=== PATIENT | male | born 1955 | race African-American/Black ===

== ENCOUNTER 2018-12-17 05:21 | Inpatient (IN) | payer OTHER ==
[2018-12-17] MEDS ORDERED: ALBUTEROL/IPRATROPIUM (NEB) 3 ML AMP HHN (06:30)
[2018-12-17] MEDS ORDERED: ONDANSETRON 4 MG INJ IV (06:30)
[2018-12-17] MEDS ORDERED: NITROGLYCERIN (SL) 0.4 MG TAB SL (06:30)
[2018-12-17] MEDS ORDERED: ACETAMINOPHEN 325 MG TAB PO (06:30)
[2018-12-17] MEDS ORDERED: NACL 0.9% 3 ML SYG IV (06:30)
[2018-12-17 06:52] LABS: ADD MAN DIFF? NO
[2018-12-17 06:55] LABS: WHITE BLOOD COUNT 5.9 10^3/ul (4.8-10.8)
[2018-12-17 06:55] LABS: BASOPHILS % 0.7 % (0.0-2.0); EOSINOPHILS # 0.1 10^3/ul (0.0-0.5); EOSINOPHILS % 1.9 % (0.0-7.0); HEMATOCRIT 42.7 % (42.0-52.0); HEMOGLOBIN 14.1 g/dl (14.0-18.0); LYMPHOCYTES # 1.9 10^3/ul (0.8-2.9); LYMPHOCYTES % 32.5 % (15.0-51.0); MEAN CORPUSCULAR HEMOGLOBIN 26.7 pg (29.0-33.0); MEAN CORPUSCULAR VOLUME 80.7 fl (82.0-101.0); MEAN PLATELET VOLUME 9.8 fl (7.4-10.4); MONOCYTE # 0.6 10^3/ul (0.3-0.9); MONOCYTES % 9.6 % (0.0-11.0); NEUTROPHIL # 3.3 10^3/ul (1.6-7.5); PLATELET COUNT 172 10^3/UL (140-415); RED BLOOD COUNT 5.29 10^6/ul (4.70-6.10); RED CELL DISTRIBUTION WIDTH 13.2 % (11.5-14.5)
[2018-12-17 07:11] LABS: CREATINE KINASE 68 IU/L (23-200)
[2018-12-17 07:14] LABS: ALANINE AMINOTRANSFERASE 29 IU/L (13-69); ALBUMIN 3.2 g/dl (3.3-4.9); ALBUMIN/GLOBULIN RATIO 1.28; ALKALINE PHOSPHATASE 62 IU/L (42-121); ANION GAP 9 (5-13); ASPARTATE AMINO TRANSFERASE 21 IU/L (15-46); BILIRUBIN,INDIRECT 0.4 mg/dl (0-1.1); BILIRUBIN,TOTAL 0.4 mg/dl (0.2-1.3); BLOOD UREA NITROGEN 11 mg/dl (7-20); CALCIUM 8.9 mg/dl (8.4-10.2); CARBON DIOXIDE 25 mmol/L (21-31); CHLORIDE 105 mmol/L (97-110); CHOL/HDL RATIO 2.6 RATIO; CHOLESTEROL 74 mg/dl (100-200); CREATININE 0.88 mg/dl (0.61-1.24); Estimated GFR > 60 mL/min (>60); GLUCOSE 82 mg/dl (70-220); HDL CHOLESTEROL 28 mg/dl (30-78); LDL CHOLESTEROL,CALCULATED 37 mg/dl; MAGNESIUM 1.9 mg/dl (1.7-2.5); SODIUM 139 mmol/L (135-144); TOTAL PROTEIN 5.7 g/dl (6.1-8.1); TRIGLYCERIDES 47 mg/dl (0-149)
[2018-12-17 07:25] LABS: CK INDEX 0.8; CK-MB 0.55 ng/ml (0.0-2.4); TROPONIN-I < 0.012 ng/ml (0.000-0.120)
[2018-12-17] MEDS ORDERED: ALPRAZOLAM 1 MG TAB PO (08:00)
[2018-12-17 08:02] LABS: HEMOGLOBIN A1C 5.7 % (0-5.9)
[2018-12-17] MEDS: ALPRAZOLAM 1 MG TAB PO (08:16)
[2018-12-17] MEDS: RANITIDINE 150 MG TAB PO ×2 (08:47→20:13)
[2018-12-17] MEDS: ATORVASTATIN 80 MG TAB PO (08:47)
[2018-12-17] MEDS: ASPIRIN 81 MG TAB PO (08:47)
[2018-12-17] MEDS: TOLTERODINE (SR) 4 MG CAP PO (08:47)
[2018-12-17] MEDS: METOPROLOL (XL) 25 MG TAB PO (08:48)
[2018-12-17] MEDS: SERTRALINE 50 MG TAB PO (08:48)
[2018-12-17] MEDS: ISOSORBIDE MONONITRATE(SR)60 MG TAB PO (08:48)
[2018-12-17] MEDS: ENALAPRIL 10 MG TAB PO ×2 (08:49→20:13)
[2018-12-17] MEDS: FLUTICASONE 0.05% 16 GM NAS SPRAY NASAL (08:49)
[2018-12-17] MEDS ORDERED: CLOPIDOGREL 75 MG TAB PO (09:00)
[2018-12-17 12:26] LABS: CREATINE KINASE 61 IU/L (23-200)
[2018-12-17 12:37] LABS: CK INDEX 0.6; CK-MB 0.39 ng/ml (0.0-2.4); TROPONIN-I < 0.012 ng/ml (0.000-0.120)
[2018-12-17] MEDS: traMADol 50 MG TAB PO (20:13)
[2018-12-17] MEDS: ZOLPIDEM 5 MG TAB PO (23:02)
[2018-12-17] MEDS: ALPRAZOLAM 0.25 MG TAB PO (23:11)
[2018-12-18 06:29] LABS: ADD MAN DIFF? NO
[2018-12-18 06:36] LABS: WHITE BLOOD COUNT 7.4 10^3/ul (4.8-10.8)
[2018-12-18 06:36] LABS: BASOPHILS % 0.4 % (0.0-2.0); EOSINOPHILS # 0.1 10^3/ul (0.0-0.5); EOSINOPHILS % 1.4 % (0.0-7.0); HEMATOCRIT 43.1 % (42.0-52.0); HEMOGLOBIN 13.7 g/dl (14.0-18.0); LYMPHOCYTES # 1.7 10^3/ul (0.8-2.9); LYMPHOCYTES % 23.1 % (15.0-51.0); MEAN CORPUSCULAR HEMOGLOBIN 26.1 pg (29.0-33.0); MEAN CORPUSCULAR HGB CONC 31.8 g/dl (32.0-37.0); MEAN CORPUSCULAR VOLUME 82.3 fl (82.0-101.0); MEAN PLATELET VOLUME 10.3 fl (7.4-10.4); MONOCYTE # 0.7 10^3/ul (0.3-0.9); MONOCYTES % 9.6 % (0.0-11.0); NEUTROPHIL # 4.8 10^3/ul (1.6-7.5); NEUTROPHILS % 65.1 % (39.0-77.0); PLATELET COUNT 187 10^3/UL (140-415); RED BLOOD COUNT 5.24 10^6/ul (4.70-6.10); RED CELL DISTRIBUTION WIDTH 13.3 % (11.5-14.5)
[2018-12-18 07:13] LABS: ANION GAP 7 (5-13); BLOOD UREA NITROGEN 15 mg/dl (7-20); CALCIUM 8.7 mg/dl (8.4-10.2); CARBON DIOXIDE 25 mmol/L (21-31); CHLORIDE 105 mmol/L (97-110); Estimated GFR > 60 mL/min (>60); GLUCOSE 87 mg/dl (70-220); PHOSPHORUS 5.2 mg/dl (2.5-4.9); POTASSIUM 4.2 mmol/L (3.5-5.1); SODIUM 137 mmol/L (135-144)
[2018-12-18] MEDS: SERTRALINE 50 MG TAB PO (09:10)
[2018-12-18] MEDS: ISOSORBIDE MONONITRATE(SR)60 MG TAB PO (09:10)
[2018-12-18] MEDS: RANITIDINE 150 MG TAB PO ×2 (09:11→20:03)
[2018-12-18] MEDS: TOLTERODINE (SR) 4 MG CAP PO (09:11)
[2018-12-18] MEDS: ENALAPRIL 10 MG TAB PO ×2 (09:11→20:03)
[2018-12-18] MEDS: ATORVASTATIN 80 MG TAB PO (09:11)
[2018-12-18] MEDS: METOPROLOL (XL) 25 MG TAB PO (09:11)
[2018-12-18] MEDS: FLUTICASONE 0.05% 16 GM NAS SPRAY NASAL (09:12)
[2018-12-18] MEDS: ASPIRIN 81 MG TAB PO (09:12)
[2018-12-18] MEDS: traMADol 50 MG TAB PO (18:50)
[2018-12-18] MEDS: ZOLPIDEM 5 MG TAB PO (21:45)
[2018-12-18] MEDS: ALPRAZOLAM 0.25 MG TAB PO (21:45)
[2018-12-19 05:47] LABS: ADD MAN DIFF? NO
[2018-12-19 05:53] LABS: WHITE BLOOD COUNT 6.8 10^3/ul (4.8-10.8)
[2018-12-19 05:53] LABS: BASOPHILS % 0.4 % (0.0-2.0); EOSINOPHILS # 0.1 10^3/ul (0.0-0.5); EOSINOPHILS % 1.9 % (0.0-7.0); HEMATOCRIT 43.3 % (42.0-52.0); HEMOGLOBIN 13.9 g/dl (14.0-18.0); LYMPHOCYTES # 1.9 10^3/ul (0.8-2.9); LYMPHOCYTES % 27.6 % (15.0-51.0); MEAN CORPUSCULAR HEMOGLOBIN 26.3 pg (29.0-33.0); MEAN CORPUSCULAR HGB CONC 32.1 g/dl (32.0-37.0); MEAN CORPUSCULAR VOLUME 81.9 fl (82.0-101.0); MEAN PLATELET VOLUME 9.9 fl (7.4-10.4); MONOCYTE # 0.8 10^3/ul (0.3-0.9); MONOCYTES % 11.1 % (0.0-11.0); NEUTROPHILS % 58.6 % (39.0-77.0); PLATELET COUNT 187 10^3/UL (140-415); RED BLOOD COUNT 5.29 10^6/ul (4.70-6.10); RED CELL DISTRIBUTION WIDTH 13.2 % (11.5-14.5)
[2018-12-19 06:12] LABS: ANION GAP 9 (5-13); BLOOD UREA NITROGEN 14 mg/dl (7-20); CALCIUM 8.9 mg/dl (8.4-10.2); CARBON DIOXIDE 25 mmol/L (21-31); CHLORIDE 103 mmol/L (97-110); CREATININE 0.93 mg/dl (0.61-1.24); Estimated GFR > 60 mL/min (>60); GLUCOSE 83 mg/dl (70-220); MAGNESIUM 1.9 mg/dl (1.7-2.5); POTASSIUM 4.2 mmol/L (3.5-5.1); SODIUM 137 mmol/L (135-144)
[2018-12-19 06:47] LABS: FREE T4 (FREE THYROXINE) 0.83 ng/dl (0.78-2.44)
[2018-12-19] MEDS: RANITIDINE 150 MG TAB PO ×2 (09:27→20:21)
[2018-12-19] MEDS: ATORVASTATIN 80 MG TAB PO (09:27)
[2018-12-19] MEDS: FLUTICASONE 0.05% 16 GM NAS SPRAY NASAL (09:27)
[2018-12-19] MEDS: ASPIRIN 81 MG TAB PO (09:28)
[2018-12-19] MEDS: TOLTERODINE (SR) 4 MG CAP PO (09:28)
[2018-12-19] MEDS: ISOSORBIDE MONONITRATE(SR)60 MG TAB PO (09:28)
[2018-12-19] MEDS: SERTRALINE 50 MG TAB PO (09:29)
[2018-12-19] MEDS: METOPROLOL (XL) 25 MG TAB PO (09:29)
[2018-12-19] MEDS: ENALAPRIL 10 MG TAB PO ×2 (09:29→20:21)
[2018-12-19] MEDS: traMADol 50 MG TAB PO ×2 (10:55→17:29)
[2018-12-19] MEDS: ZOLPIDEM 5 MG TAB PO (22:03)
[2018-12-20 06:14] LABS: ADD MAN DIFF? NO
[2018-12-20 06:23] LABS: BASOPHILS % 0.5 % (0.0-2.0); EOSINOPHILS # 0.2 10^3/ul (0.0-0.5); EOSINOPHILS % 2.5 % (0.0-7.0); HEMATOCRIT 45.4 % (42.0-52.0); HEMOGLOBIN 14.5 g/dl (14.0-18.0); LYMPHOCYTES # 1.8 10^3/ul (0.8-2.9); MEAN CORPUSCULAR HEMOGLOBIN 26.2 pg (29.0-33.0); MEAN CORPUSCULAR HGB CONC 31.9 g/dl (32.0-37.0); MEAN CORPUSCULAR VOLUME 82.1 fl (82.0-101.0); MONOCYTE # 0.6 10^3/ul (0.3-0.9); MONOCYTES % 10.6 % (0.0-11.0); NEUTROPHIL # 3.4 10^3/ul (1.6-7.5); NEUTROPHILS % 55.9 % (39.0-77.0); PLATELET COUNT 187 10^3/UL (140-415); RED BLOOD COUNT 5.53 10^6/ul (4.70-6.10); RED CELL DISTRIBUTION WIDTH 13.1 % (11.5-14.5)
[2018-12-20 06:45] LABS: ANION GAP 7 (5-13); BLOOD UREA NITROGEN 12 mg/dl (7-20); CALCIUM 9.4 mg/dl (8.4-10.2); CARBON DIOXIDE 26 mmol/L (21-31); CHLORIDE 104 mmol/L (97-110); CREATININE 0.87 mg/dl (0.61-1.24); Estimated GFR > 60 mL/min (>60); GLUCOSE 87 mg/dl (70-220); SODIUM 137 mmol/L (135-144)
[2018-12-20 07:30] LABS: POTASSIUM 4.8 mmol/L (3.5-5.1)
[2018-12-20] MEDS: ATORVASTATIN 80 MG TAB PO (09:10)
[2018-12-20] MEDS: RANITIDINE 150 MG TAB PO ×2 (09:10→21:27)
[2018-12-20] MEDS: ASPIRIN 81 MG TAB PO (09:10)
[2018-12-20] MEDS: ISOSORBIDE MONONITRATE(SR)60 MG TAB PO (09:10)
[2018-12-20] MEDS: TOLTERODINE (SR) 4 MG CAP PO (09:10)
[2018-12-20] MEDS: ENALAPRIL 10 MG TAB PO ×2 (09:11→21:00)
[2018-12-20] MEDS: SERTRALINE 50 MG TAB PO (09:12)
[2018-12-20] MEDS: METOPROLOL (XL) 25 MG TAB PO (09:12)
[2018-12-20] MEDS: FLUTICASONE 0.05% 16 GM NAS SPRAY NASAL (09:13)
[2018-12-20] MEDS: traMADol 50 MG TAB PO ×3 (12:34→23:32)
[2018-12-20] MEDS: CLOPIDOGREL 75 MG TAB PO (13:35)
[2018-12-20] MEDS: ZOLPIDEM 5 MG TAB PO (23:31)
[2018-12-21 05:19] LABS: ADD MAN DIFF? NO
[2018-12-21 05:27] LABS: BASOPHILS % 0.5 % (0.0-2.0); EOSINOPHILS # 0.2 10^3/ul (0.0-0.5); EOSINOPHILS % 3.4 % (0.0-7.0); HEMATOCRIT 45.1 % (42.0-52.0); HEMOGLOBIN 14.4 g/dl (14.0-18.0); LYMPHOCYTES # 1.8 10^3/ul (0.8-2.9); LYMPHOCYTES % 31.7 % (15.0-51.0); MEAN CORPUSCULAR HEMOGLOBIN 26.2 pg (29.0-33.0); MEAN CORPUSCULAR HGB CONC 31.9 g/dl (32.0-37.0); MEAN CORPUSCULAR VOLUME 82.1 fl (82.0-101.0); MONOCYTE # 0.7 10^3/ul (0.3-0.9); MONOCYTES % 11.6 % (0.0-11.0); NEUTROPHIL # 2.9 10^3/ul (1.6-7.5); NEUTROPHILS % 52.3 % (39.0-77.0); PLATELET COUNT 184 10^3/UL (140-415); RED BLOOD COUNT 5.49 10^6/ul (4.70-6.10)
[2018-12-21 05:27] LABS: WHITE BLOOD COUNT 5.6 10^3/ul (4.8-10.8)
[2018-12-21 05:40] LABS: INR 1.02; PROTIME 13.5 Sec (11.9-14.9); PT RATIO 1.1
[2018-12-21 06:09] LABS: CREATINE KINASE 54 IU/L (23-200)
[2018-12-21 06:10] LABS: CHOLESTEROL 73 mg/dl (100-200)
[2018-12-21 06:10] LABS: CHOL/HDL RATIO 2.6 RATIO; HDL CHOLESTEROL 28 mg/dl (30-78); LDL CHOLESTEROL,CALCULATED 30 mg/dl; TRIGLYCERIDES 74 mg/dl (0-149)
[2018-12-21 06:15] LABS: B-TYPE NATRIURETIC PEPTIDE 47 PG/ML (0-125)
[2018-12-21 06:22] LABS: CK INDEX 0.9; CK-MB 0.46 ng/ml (0.0-2.4); TROPONIN-I < 0.012 ng/ml (0.000-0.120)
[2018-12-21 06:27] LABS: ANION GAP 6 (5-13); BLOOD UREA NITROGEN 16 mg/dl (7-20); CALCIUM 9.2 mg/dl (8.4-10.2); CARBON DIOXIDE 27 mmol/L (21-31); CHLORIDE 104 mmol/L (97-110); CREATININE 0.91 mg/dl (0.61-1.24); Estimated GFR > 60 mL/min (>60); GLUCOSE 88 mg/dl (70-220); POTASSIUM 4.5 mmol/L (3.5-5.1); SODIUM 137 mmol/L (135-144)
[2018-12-21] MEDS: TOLTERODINE (SR) 4 MG CAP PO (08:44)
[2018-12-21] MEDS: FLUTICASONE 0.05% 16 GM NAS SPRAY NASAL (08:44)
[2018-12-21] MEDS: ASPIRIN 81 MG TAB PO (08:44)
[2018-12-21] MEDS: RANITIDINE 150 MG TAB PO ×2 (08:44→21:56)
[2018-12-21] MEDS: ATORVASTATIN 80 MG TAB PO (08:44)
[2018-12-21] MEDS: SERTRALINE 50 MG TAB PO (08:44)
[2018-12-21] MEDS: METOPROLOL (XL) 25 MG TAB PO (08:45)
[2018-12-21] MEDS: ENALAPRIL 10 MG TAB PO ×2 (08:45→22:45)
[2018-12-21] MEDS: ISOSORBIDE MONONITRATE(SR)60 MG TAB PO (08:46)
[2018-12-21] MEDS: CLOPIDOGREL 75 MG TAB PO (08:51)
[2018-12-21] MEDS: traMADol 50 MG TAB PO ×2 (09:19→18:29)
[2018-12-21] MEDS ORDERED: LIDOCAINE 1% (MDV) 20 ML INJ (14:46)
[2018-12-21] MEDS ORDERED: IODIXANOL LOCM 100 ML BTL (14:46)
[2018-12-21] MEDS ORDERED: MIDAZOLAM 1 MG/ML 2 ML INJ (14:53)
[2018-12-21] MEDS ORDERED: FENTAnyl 50 MCG/ML VIAL (14:53)
[2018-12-21] MEDS ORDERED: SOD CHLORIDE 0.9% 1,000 ML (16:39)
[2018-12-21] MEDS ORDERED: HEPARIN 1000 UNITS/ML 10 ML INJ (17:00)
[2018-12-21] MEDS ORDERED: IOHEXOL 350MG/ML 50 ML BTL (17:00)
[2018-12-21] MEDS ORDERED: IODIXANOL LOCM 50 ML BTL (17:00)
[2018-12-21] MEDS ORDERED: CLOPIDOGREL 300 MG TAB (17:30)
[2018-12-21] MEDS ORDERED: ACETAMINOPHEN 325 MG TAB PO (18:00)
[2018-12-21] MEDS: OXYCODONE/ACETAMINOPHEN (5/325) TAB PO (18:55)
[2018-12-21] MEDS: morphine 2 MG INJ IV (18:55)
[2018-12-21] MEDS: SOD CHLORIDE 0.9% 1,000 ML IV (21:55)
[2018-12-21] MEDS: ZOLPIDEM 5 MG TAB PO (22:46)
[2018-12-22] MEDS: OXYCODONE/ACETAMINOPHEN (5/325) TAB PO ×3 (01:27→23:33)
[2018-12-22 04:39] LABS: ADD MAN DIFF? NO
[2018-12-22 04:41] LABS: WHITE BLOOD COUNT 6.5 10^3/ul (4.8-10.8)
[2018-12-22 04:41] LABS: BASOPHILS % 0.3 % (0.0-2.0); EOSINOPHILS # 0.1 10^3/ul (0.0-0.5); EOSINOPHILS % 1.7 % (0.0-7.0); HEMATOCRIT 44.1 % (42.0-52.0); HEMOGLOBIN 14.3 g/dl (14.0-18.0); LYMPHOCYTES # 1.4 10^3/ul (0.8-2.9); LYMPHOCYTES % 21.5 % (15.0-51.0); MEAN CORPUSCULAR HEMOGLOBIN 26.1 pg (29.0-33.0); MEAN CORPUSCULAR HGB CONC 32.4 g/dl (32.0-37.0); MEAN CORPUSCULAR VOLUME 80.6 fl (82.0-101.0); MEAN PLATELET VOLUME 9.6 fl (7.4-10.4); MONOCYTE # 0.7 10^3/ul (0.3-0.9); MONOCYTES % 10.7 % (0.0-11.0); NEUTROPHIL # 4.2 10^3/ul (1.6-7.5); NEUTROPHILS % 65.3 % (39.0-77.0); PLATELET COUNT 196 10^3/UL (140-415); RED BLOOD COUNT 5.47 10^6/ul (4.70-6.10); RED CELL DISTRIBUTION WIDTH 13.2 % (11.5-14.5)
[2018-12-22 05:06] LABS: ALANINE AMINOTRANSFERASE 20 IU/L (13-69); ALBUMIN 3.6 g/dl (3.3-4.9); ALBUMIN/GLOBULIN RATIO 1.33; ALKALINE PHOSPHATASE 69 IU/L (42-121); ANION GAP 11 (5-13); ASPARTATE AMINO TRANSFERASE 19 IU/L (15-46); BILIRUBIN,INDIRECT 0.3 mg/dl (0-1.1); BILIRUBIN,TOTAL 0.3 mg/dl (0.2-1.3); BLOOD UREA NITROGEN 17 mg/dl (7-20); CARBON DIOXIDE 25 mmol/L (21-31); CHLORIDE 102 mmol/L (97-110); CREATINE KINASE 68 IU/L (23-200); CREATININE 0.84 mg/dl (0.61-1.24); Estimated GFR > 60 mL/min (>60); GLUCOSE 88 mg/dl (70-220); POTASSIUM 4.5 mmol/L (3.5-5.1); SODIUM 138 mmol/L (135-144); TOTAL PROTEIN 6.3 g/dl (6.1-8.1)
[2018-12-22] MEDS: ISOSORBIDE MONONITRATE(SR)60 MG TAB PO (08:17)
[2018-12-22] MEDS: RANITIDINE 150 MG TAB PO ×2 (08:18→21:00)
[2018-12-22] MEDS: CLOPIDOGREL 75 MG TAB PO (08:18)
[2018-12-22] MEDS: ASPIRIN 81 MG TAB PO (08:18)
[2018-12-22] MEDS: SERTRALINE 50 MG TAB PO (08:18)
[2018-12-22] MEDS: ATORVASTATIN 80 MG TAB PO (08:19)
[2018-12-22] MEDS: METOPROLOL (XL) 25 MG TAB PO (08:19)
[2018-12-22] MEDS: traMADol 50 MG TAB PO ×2 (08:24→15:45)
[2018-12-22] MEDS: FLUTICASONE 0.05% 16 GM NAS SPRAY NASAL (10:10)
[2018-12-22] MEDS: TOLTERODINE (SR) 4 MG CAP PO (10:11)
[2018-12-22] MEDS: TERBINAFINE 250 MG TAB PO ×2 (10:11→22:23)
[2018-12-22] MEDS: ENALAPRIL 10 MG TAB PO ×2 (10:13→22:23)
[2018-12-22] MEDS: ZOLPIDEM 5 MG TAB PO (22:29)
[2018-12-23] MEDS: ATORVASTATIN 80 MG TAB PO (08:16)
[2018-12-23] MEDS: RANITIDINE 150 MG TAB PO (08:16)
[2018-12-23] MEDS: TERBINAFINE 250 MG TAB PO (08:16)
[2018-12-23] MEDS: CLOPIDOGREL 75 MG TAB PO (08:16)
[2018-12-23] MEDS: ISOSORBIDE MONONITRATE(SR)60 MG TAB PO (08:16)
[2018-12-23] MEDS: METOPROLOL (XL) 25 MG TAB PO (08:17)
[2018-12-23] MEDS: ENALAPRIL 10 MG TAB PO (08:17)
[2018-12-23] MEDS: ASPIRIN 81 MG TAB PO (08:17)
[2018-12-23] MEDS: FLUTICASONE 0.05% 16 GM NAS SPRAY NASAL (08:17)
[2018-12-23] MEDS: TOLTERODINE (SR) 4 MG CAP PO (09:00)
[2018-12-23] MEDS: SERTRALINE 50 MG TAB PO (09:00)
== END 2018-12-23 12:49 | disposition home or self-care (01) | DRG 247 ==
LOC: TEL 12-22 17:35 → 6WM 05:21 → ICU 12-21 18:29
PROC: 027036Z Dilation of Coronary Artery, One Artery with Three Drug-eluting Intraluminal Devices, Percutaneous Approach (ICD-10-PCS; principal; 2018-12-21 14:00)
PROC: 4A023N7 Measurement of Cardiac Sampling and Pressure, Left Heart, Percutaneous Approach (ICD-10-PCS; 2018-12-21 14:00)
PROC: B211YZZ Fluoroscopy of Multiple Coronary Arteries using Other Contrast (ICD-10-PCS; 2018-12-21 14:00)
DX: I25.110 Atherosclerotic heart disease of native coronary artery with unstable angina pectoris (principal); I24.9 Acute ischemic heart disease, unspecified; I25.82 Chronic total occlusion of coronary artery; E78.5 Hyperlipidemia, unspecified; F41.9 Anxiety disorder, unspecified; G47.00 Insomnia, unspecified; I10 Essential (primary) hypertension; K21.9 Gastro-esophageal reflux disease without esophagitis; I25.2 Old myocardial infarction; Z95.5 Presence of coronary angioplasty implant and graft; Z79.02 Long term (current) use of antithrombotics/antiplatelets; Z79.82 Long term (current) use of aspirin
CPT/HCPCS: 80048; 80053; 80061; 82550; 82553; 83036; 83735; 83880; 84100; 84439; 84443; 84484; 85025; 85610; 87081; 92943; 93005; 93306; 93458; 99217; G0378

== ENCOUNTER 2019-04-26 10:05 | Day surgery (SDC) | payer OTHER ==
[2019-04-26] MEDS ORDERED: PROPOFOL 60 ML (11:33)
[2019-04-26] MEDS ORDERED: LIDOCAINE 2% (SDV) 5 ML INJ (11:33)
== END 2019-04-26 14:23 | disposition home or self-care (01) ==
LOC: GIL 10:05
DX: Z12.11 Encounter for screening for malignant neoplasm of colon (principal); K64.9 Unspecified hemorrhoids; D12.3 Benign neoplasm of transverse colon; I25.10 Atherosclerotic heart disease of native coronary artery without angina pectoris; I10 Essential (primary) hypertension
CPT/HCPCS: 45380; 88305